=== PATIENT | female | born 2005 | race American Indian/Alaskan Native ===

== ENCOUNTER 2024-05-20 21:26 | Emergency (ER) | payer OTHER ==
[2024-05-20] MEDS: Ibuprofen 200 MG Tab PO ONE (21:58)
== END 2024-05-20 23:11 | disposition home or self-care (01) ==
LOC: VM.ED 21:26
DX: S93.401A Sprain of unspecified ligament of right ankle, initial encounter (principal); Z91.030 Bee allergy status; X50.0XXA Overexertion from strenuous movement or load, initial encounter; Y93.89 Activity, other specified
CPT/HCPCS: 73610-RT; 99283; A9270-GY